=== PATIENT | female | born 1980 | race Caucasian/White ===

== ENCOUNTER → 2021-09-22 | Day surgery (SDC) | payer OTHER ==
[~2021-09-22] VITALS: Ht 162.6 cm; Wt 47.6 kg
[~2021-09-22] MED LIST: BACLOFEN 10MG T10 MG PO; BORIC ACID; IBUPROFEN800 M1 PO; PHENAZOPYRIDIN200 MG PO; PYRIDIUM200 MG PO
[2021-09-22 07:34] LABS: HCG (URINE) SCREEN NEGATIVE (NEGATIVE)
== END | disposition home or self-care (01) ==
LOC: FAS 06:55
PROVIDERS: Obstetrics & Gynecology
DX: D06.0 Carcinoma in situ of endocervix (principal); D06.1 Carcinoma in situ of exocervix; N30.11 Interstitial cystitis (chronic) with hematuria; F17.210 Nicotine dependence, cigarettes, uncomplicated; F41.9 Anxiety disorder, unspecified; R30.0 Dysuria
CPT/HCPCS: 84703; J1885; J2250; J3010; J7120